=== PATIENT | male | born 1940 | race Caucasian/White ===

== ENCOUNTER 2016-11-21 07:49 | Emergency (ER) | payer MEDICARE, OTHER ==
[~2016-11-21] VITALS: Ht 172.7 cm; Wt 64.0 kg
[~2016-11-21 07:49] MED LIST: ASPI81TA82 PO; ATOR10 PO; ENOX40P SC; HYZA100T6 PO; OXYC-360 PO; TAB-TAB PO; XOPEAER4 INH
[2016-11-21 07:56] VITALS: BP 166/98; PULSE 94; RESP 18; O2SAT 94
[2016-11-21] MEDS ORDERED: ATOR10TA15 PO (08:06)
[2016-11-21] MEDS ORDERED: FLUT1INH INH (08:06)
[2016-11-21] MEDS ORDERED: IPRASOL INH (08:06)
[2016-11-21] MEDS ORDERED: AMLO5TAB2 PO (08:06)
[2016-11-21] MEDS ORDERED: AMOX875T PO (08:06)
[2016-11-21] MEDS ORDERED: CIPR500T2 PO (08:06)
[2016-11-21] MEDS ORDERED: methylPREDNISolone SOD SUCC 125 MG/2 ML VIAL IV PUSH ONE (08:15)
[2016-11-21] MEDS ORDERED: SODIUM CHLORIDE 0.9% FLUSH 10 ML FLUSH IVF PRN (08:15)
[2016-11-21 08:17] VITALS: BP 152/98; PULSE 92; RESP 18; TEMP 98.6; O2SAT 94; O2SAT 96
--- NOTE | 2016-11-21 08:19 | PD ---
HPI Chief Complaint: Respiratory Symptoms Time Seen by Provider: 08:02 Travel History International Travel<30 days: No Contact w/Intl Traveler<30days: No Traveled to known affect area: No History of Present Illness HPI This 76-year-old male is complaining of shortness of breath. His been sick for at least the last 10 days. He's had 2 visits to urgent care center. On his last visit he was put on amoxicillin and prednisone 50 mg daily which has been taking. He has not had any chills or fever. He is not having chest pain. He does have a persistent hacking cough which is nonproductive. He has a history of COPD and bronchitis. He stopped smoking 40 years ago. He has a history of hypertension and is on amlodipine. He has hyperlipidemia. He has no history of heart disease. She had a CT scan of the chest done in 2003 which showed some pleural thickening in the left upper anterior chest. Follow-up was recommended PFS Past Medical History Arthritis: Yes Autoimmune Disease: No Anxiety: No Depression: No Cancer: No Cardiovascular Problems: Yes High Cholesterol: Yes COPD: Yes Diabetes: No Endocrine: No Genitourinary: No Hypertension: Yes Musculoskeletal: Yes Neurologic: No Respiratory: Yes (copd) Thyroid Disease: No Influenza Vaccination: No ?: Not Past Surgical History Body Medical Devices: RIGHT SHOULDER Joint Replacement: Yes (RIGHT SHOULDER, mary KNEE) Pacemaker: No Tonsillectomy: Yes Other Surgery: Yes Social History Alcohol Use: Yes Tobacco Use: No Allergies-Medications (Allergen,Severity, Reaction): Coded Allergies: No Known Allergies (Verified , 11/21/16) Reported Meds & Prescriptions Reported Meds & Active Scripts Active Reported Amoxicillin 875 Mg Tab 875 Mg PO BID Ciprofloxacin (Ciprofloxacin HCl) 500 Mg Tab 500 Mg PO BID Duoneb (Ipratropium-Albuterol Neb) 0.5-2.5 Mg/3 Ml Neb 1 Nebule INH Q4HR NEB Amlodipine (Amlodipine Besylate) 5 Mg Tab 5 Mg PO DAILY Atorvastatin (Atorvastatin Calcium) 10 Mg Tab 10 Mg PO HS Breo Ellipta Inh (Fluticasone/Vilanterol) 100-25 Mcg/Act Inh 1 Puff INH DAILY Use daily at the same time. Review of Systems General / Constitutional: No: Fever, Chills Eyes: No: Diploplia, Blurred Vision HENT: No: Headaches, Vertigo Cardiovascular: No: Chest Pain or Discomfort, Palpitations, Irregular Rhythm Respiratory: Positive: Cough, Shortness of Breath Gastrointestinal: No: Nausea, Vomiting Genitourinary: No: Urgency, Frequency Musculoskeletal: No: Myalgias, Arthralgias Skin: No Rash, No Itching Neurologic: No: Weakness, Dizziness Psychiatric: No: Anxiety Hematologic/Lymphatic: No: Easy Bruising Physical Exam Narrative GENERAL: Well-developed male SKIN: Focused skin assessment warm/dry. HEAD: Atraumatic. Normocephalic. EYES: Pupils equal and round. No scleral icterus. No injection or drainage. ENT: No nasal bleeding or discharge. Mucous membranes pink and moist. NECK: Trachea midline. No JVD. CARDIOVASCULAR: Regular rate and rhythm. No murmur appreciated. RESPIRATORY: No accessory muscle use. There are bilateral rhonchi GASTROINTESTINAL: Abdomen soft, non-tender, nondistended. Hepatic and splenic margins not palpable. MUSCULOSKELETAL: No obvious deformities. No clubbing. No cyanosis. No edema. NEUROLOGICAL: Awake and alert. No obvious cranial nerve deficits. Motor grossly within normal limits. Normal speech. PSYCHIATRIC: Appropriate mood and affect; insight and judgment normal. Data Data Last Documented VS Vital Signs Date Time Temp Pulse Resp B/P (MAP) Pulse Ox O2 Delivery O2 Flow Rate FiO2 11/21/16 09:29 18 94 Nasal Cannula 2.00 11/21/16 09:28 98 168/94 (118) 11/21/16 08:17 98.6 Orders Orders Complete Blood Count With Diff (11/21/16 08:03) Comprehensive Metabolic Panel (11/21/16 08:03) B-Type Natriuretic Peptide (11/21/16 08:03) Urinalysis - C+S If Indicated (11/21/16 08:03) Influenzae A/B Antigen (11/21/16 08:03) Blood Culture (11/21/16 08:03) Iv Access Insert/Monitor (11/21/16 08:03) Ecg Monitoring (11/21/16 08:03) Oximetry (11/21/16 08:03) Oxygen Administration (11/21/16 08:03) Chest, Single Ap (11/21/16 08:03) Sodium Chloride 0.9% Flush (Ns Flush) (11/21/16 08:15) Methylprednisolone So Succ Inj (Solumedr (11/21/16 08:15) Albuterol-Ipratropium Neb (Duoneb Neb) (11/21/16 08:15) Ct Pulmonary Angiogram (11/21/16 08:26) Potassium Chloride (Kcl) (11/21/16 08:45) Iohexol 350 Inj (Omnipaque 350 Inj) (11/21/16 09:20) Labs Laboratory Tests Test 11/21/16 08:10 White Blood Count 9.0 TH/MM3 Red Blood Count 4.32 MIL/MM3 Hemoglobin 13.1 GM/DL Hematocrit 38.4 % Mean Corpuscular Volume 89.0 FL Mean Corpuscular Hemoglobin 30.4 PG Mean Corpuscular Hemoglobin Concent 34.2 % Red Cell Distribution Width 13.3 % Platelet Count 347 TH/MM3 Mean Platelet Volume 7.6 FL Neutrophils (%) (Auto) 70.0 % Lymphocytes (%) (Auto) 16.5 % Monocytes (%) (Auto) 6.4 % Eosinophils (%) (Auto) 6.6 % Basophils (%) (Auto) 0.5 % Neutrophils # (Auto) 6.3 TH/MM3 Lymphocytes # (Auto) 1.5 TH/MM3 Monocytes # (Auto) 0.6 TH/MM3 Eosinophils # (Auto) 0.6 TH/MM3 Basophils # (Auto) 0.0 TH/MM3 CBC Comment DIFF FINAL Differential Comment Blood Urea Nitrogen 10 MG/DL Creatinine 0.66 MG/DL Random Glucose 92 MG/DL Total Protein 7.4 GM/DL Albumin 3.3 GM/DL Calcium Level 8.7 MG/DL Alkaline Phosphatase 76 U/L Aspartate Amino Transf (AST/SGOT) 20 U/L Alanine Aminotransferase (ALT/SGPT) 23 U/L Total Bilirubin 0.6 MG/DL Sodium Level 138 MEQ/L Potassium Level 3.4 MEQ/L Chloride Level 104 MEQ/L Carbon Dioxide Level 25.0 MEQ/L Anion Gap 9 MEQ/L Estimat Glomerular Filtration Rate 118 ML/MIN B-Type Natriuretic Peptide 42 PG/ML [facility] Medical Decision Making Medical Screen Exam Complete: Yes Emergency Medical Condition: Yes Medical Record Reviewed: Yes Differential Diagnosis Differential includes CHF, pneumonia, COPD exacerbation Narrative Course Chest x-ray shows no acute cardiopulmonary findings. There are arthritic changes and postsurgical changes of the shoulder. There is noted to be some mild chronic-appearing interstitial changes of the pulmonary parenchyma. This patient has had increasing shortness of breath which has not responded to antibiotics and steroids. I'm going to order a CT pulmonary angiogram. CT scan has been done. There is no pulmonary embolus. There is some mild aneurysmal dilatation of the aorta. There is an area of consolidation involving the medial aspect of the left lower lobe. This gentleman has been on amoxicillin and Cipro. I'm been a change his antibiotic to Augmentin. He does not have fever, white count or acute bronchospasm at this time. He is stable for discharge I have told him he needs to see a pulmonary doctor. He will call his primary care doctor for referral given him copies of his CT scan and lab work. Diagnosis Primary Impression: Pneumonia Qualified Codes: J18.1 - Lobar pneumonia, unspecified organism Additional Impression: COPD (chronic obstructive pulmonary disease) Qualified Codes: J42 - Unspecified chronic bronchitis Additional Instructions: Follow-up with biomedical equipment specialist, call your doctor for referral Scripts Amoxicillin-Clavulanate (Augmentin) 500-125 mg Tab 500 MG PO Q8H for Infection for 10 Days, TAB 0 Refills Prov: William Pruitt MD 11/21/16 Disposition: 01 DISCHARGE HOME Condition: Stable William Pruitt MD Nov 21, 2016 08:19
[2016-11-21 08:21] LABS: AUTOMATED NEUTROPHIL # 6.3 TH/MM3 (1.8-7.7); BASOPHIL % 0.5 % (0.0-2.0); EOSINOPHIL # 0.6 TH/MM3 (0-0.4); EOSINOPHIL % 6.6 % (0.0-4.0); HEMATOCRIT 38.4 % (39.0-51.0); HEMO FLAGS DIFF FINAL; LYMPH % 16.5 % (9.0-44.0); LYMPHOCYTE # 1.5 TH/MM3 (1.0-4.8); MEAN CORPUSCULAR HEMOGLOBIN 30.4 PG (27.0-34.0); MEAN CORPUSCULAR HGB CONC 34.2 % (32.0-36.0); MONO % 6.4 % (0.0-8.0); PLATELET COUNT 347 TH/MM3 (150-450); RED BLOOD COUNT 4.32 MIL/MM3 (4.50-5.90); RED CELL DISTRIBUTION WIDTH 13.3 % (11.6-17.2)
--- NOTE | 2016-11-21 08:22 | RADRPT ---
EXAM DATE/TIME: 11/21/2016 08:15 [facility] COMPARISON: No previous studies available for comparison. INDICATIONS : Short of breath. MEDICAL HISTORY : Chronic obstructive pulmonary disease. SURGICAL HISTORY : None. ENCOUNTER: Initial ACUITY: 1 week PAIN SCORE: 0/10 LOCATION: Bilateral chest FINDINGS: The heart is normal in size. There mild chronic appearing interstitial changes within the pulmonary p arenchyma. The lungs are otherwise clear. The visualized bony structures demonstrate advanced degenerative changes within the left shoulder. Th ere has been prior arthroplasty of the right shoulder. CONCLUSION: 1. No acute cardiopulmonary findings. 2. Arthritic changes and postsurgical changes of the shoulders as above. Meek Suggs MD on November 21, 2016 at 8:20 Board Certified Radiologist. This report was verified electronically.
[2016-11-21 08:30] VITALS: O2SAT 93
[2016-11-21] MEDS: RESP: ALBUTEROL 2.5 MG/IPRATROPIUM 0.5 MG NEB (SCH) INH (08:30)
[2016-11-21 08:39] LABS: CHLORIDE 104 MEQ/L (98-107); POTASSIUM 3.4 MEQ/L (3.5-5.1); SODIUM (NA) 138 MEQ/L (136-145)
[2016-11-21 08:43] LABS: ANION GAP 9 MEQ/L (5-15); BLOOD UREA NITROGEN 10 MG/DL (7-18)
[2016-11-21] MEDS ORDERED: POTASSIUM CHLORIDE 20 MEQ CONTROLLED RELEASE TAB PO ONE (08:45)
[2016-11-21 08:46] LABS: ALT (GPT) 23 U/L (12-78); AST (GOT) 20 U/L (15-37); GLOMERULAR FILTRATION RATE 118 ML/MIN (>89)
[2016-11-21 08:48] LABS: TOTAL BILIRUBIN ADULT 0.6 MG/DL (0.2-1.0)
[2016-11-21 08:49] LABS: ALKALINE PHOSPHATASE 76 U/L (45-117)
[2016-11-21] MEDS ORDERED: IOHEXOL 350 MG/ML 10 ML VIAL (for RAD DIAG) IVCONTRAST ONE (09:20)
[2016-11-21 09:28] VITALS: BP 168/94; PULSE 98; RESP 18; O2SAT 94
--- NOTE | 2016-11-21 09:31 | RADRPT ---
EXAM DATE/TIME: 11/21/2016 09:02 [facility] COMPARISON: No previous studies available for comparison. INDICATIONS : Short of breath. Evaluate for embolism. IV CONTRAST: 75 cc Omnipaque 350 (iohexol) IV RADIATION DOSE: 13.31 CTDIvol (mGy) MEDICAL HISTORY : Hypertension. Chronic obstructive pulmonary disease. SURGICAL HISTORY : Tonsillectomy. ENCOUNTER: Initial ACUITY: 2 weeks PAIN SCALE: 0/10 LOCATION: chest TECHNIQUE: Volumetric scanning of the chest was performed using a pulmonary embolism protocol MIP images were re constructed. Using automated exposure control and adjustment of the mA and/or kV according to patien t size, radiation dose was kept as low as reasonably achievable to obtain optimal diagnostic quality images. DICOM format image data is available electronically for review and comparison. Follow-up recommendations for detected pulmonary nodules are based at a minimum on nodule size and pa tient risk factors according to Fleischner Society Guidelines. FINDINGS: The examination is of good diagnostic quality. No pulmonary embolus is identified. The tubular portion of the ascending aorta is mildly aneurysmal at 3.9 cm. The arch is mildly aneurys mal as well measuring approximately 3.2 cm. The descending thoracic aorta is normal in caliber. The h eart is at the upper limits of normal in size. There is mild atherosclerotic plaquing and coronary ar teries. No significant hilar or mediastinal adenopathy is seen. There are COPD changes within the pulmonary parenchyma. There is an area of consolidation in the post erior medial aspect of the left lower lobe. Bone windowed images demonstrate a pectus deformity. The osseous structures are otherwise intact. The visualized portion of upper abdomen demonstrate a 1 cm simple cyst within the right kidney. CONCLUSION: 1. No pulmonary embolus identified. 2. Moderate sized area of consolidation involving the medial aspect of the left lower lobe. 3. 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 Size measurements are given above. 4. Pectus deformity. Meek Suggs MD on November 21, 2016 at 9:26 Board Certified Radiologist. This report was verified electronically.
[2016-11-21] MEDS ORDERED: AUGM500T7 PO (09:50)
--- NOTE | 2016-11-21 14:16 | EKG ---
Date Performed: 11/21/2016 Time Performed: 07:54:37 PTAGE: 76 years EKG: Sinus rhythm WITH PACs LEFT ANTERIOR FASCICULAR BLOCK ABNORMAL ECG NO PREVIOUS TRACING DOCTOR: Pete Haywood Interpretating Date/Time 11/21/2016 14:15:59
== END 2016-11-21 10:06 | disposition home or self-care (01) ==
LOC: PHED 07:49
DX: J18.1 Lobar pneumonia, unspecified organism (principal); J44.0 Chronic obstructive pulmonary disease with (acute) lower respiratory infection; R94.31 Abnormal electrocardiogram [ECG] [EKG]; I10 Essential (primary) hypertension
CPT/HCPCS: 71010; 71275; 80053; 83880; 85025; 87040; 87804; 93005; 94640; 94664; 96374; 99285; J2930; Q9967

== ENCOUNTER 2017-05-12 15:57 | Inpatient (IN) | payer MEDICARE ==
[~2017-05-12] VITALS: Ht 172.7 cm; Wt 66.3 kg
[2017-05-12] VITALS (7 sets, daily range): BP systolic 125–169; BP diastolic 72–95; PULSE 107–112; RESP 18–20; TEMP 98.5–99; O2SAT 85–93
[~2017-05-12 15:57] MED LIST changes: +AMLO5TAB2 PO; +AMOX875T PO; -ASPI81TA82 PO; -ATOR10 PO; +ATOR10TA15 PO; +AUGM500T7 PO; +CIPR500T2 PO; -ENOX40P SC; +FLUT1INH INH; -HYZA100T6 PO; +IPRASOL INH; -OXYC-360 PO; -TAB-TAB PO; -XOPEAER4 INH
[2017-05-12] MEDS: RESP: ALBUTEROL 2.5 MG/IPRATROPIUM 0.5 MG NEB (SCH) INH ×2 (16:28→19:53)
[2017-05-12] MEDS ORDERED: methylPREDNISolone SOD SUCC 125 MG/2 ML VIAL IV PUSH ONE (16:30)
--- NOTE | 2017-05-12 16:30 | PD ---
HPI Chief Complaint: Respiratory Symptoms Time Seen by Provider: 16:13 Travel History International Travel<30 days: No Contact w/Intl Traveler<30days: No Traveled to known affect area: No History of Present Illness HPI 77yo M with PMH of COPD presents to the ED with c/o sob for a few days. Said he felt warm but no documented fever. +Productive cough. Does not use oxygen at home, only has nebulizer machine. +Generalized weakness. Denies any chest pain , n/v, abdominal pain, focal weakness or numbness, history of PE/DVT, hemoptysis. 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 [facility] Past Medical History Arthritis: Yes Autoimmune Disease: No Anxiety: No Depression: No Cancer: No Cardiovascular Problems: Yes High Cholesterol: Yes COPD: Yes Diabetes: No Diminished Hearing: No Endocrine: No Genitourinary: No Hypertension: Yes Implanted Vascular Access Dvce: Yes Musculoskeletal: Yes Neurologic: No Respiratory: Yes (copd) Thyroid Disease: No Tetanus Vaccination: Unknown Influenza Vaccination: No Past Surgical History Body Medical Devices: RIGHT SHOULDER Joint Replacement: Yes (RIGHT SHOULDER, mary KNEE) Pacemaker: No Tonsillectomy: Yes Other Surgery: Yes Social History Alcohol Use: Yes Tobacco Use: No Substance Use: No Allergies-Medications (Allergen,Severity, Reaction): Coded Allergies: No Known Allergies (Verified Adverse Reaction, Unknown, 05/12/17) Reported Meds & Prescriptions Reported Meds & Active Scripts Active Reported Duoneb (Ipratropium-Albuterol Neb) 0.5-2.5 Mg/3 Ml Neb 1 Nebule INH Q4HR NEB Amlodipine (Amlodipine Besylate) 5 Mg Tab 5 Mg PO DAILY Atorvastatin (Atorvastatin Calcium) 10 Mg Tab 10 Mg PO HS Breo Ellipta Inh (Fluticasone/Vilanterol) 100-25 Mcg/Act Inh 1 Puff INH DAILY Use daily at the same time. Review of Systems Except as stated in HPI: all other systems reviewed are Neg Physical Exam Narrative GENERAL: 77yo M in mild distress. SKIN: Focused skin assessment warm/dry. HEAD: Atraumatic. Normocephalic. EYES: Pupils equal and round. No scleral icterus. No injection or drainage. ENT: No nasal bleeding or discharge. Mucous membranes pink and moist. NECK: Trachea midline. No JVD. CARDIOVASCULAR: Tachycardic in the low 100s. No murmur appreciated. RESPIRATORY: + accessory muscle use. Clear to auscultation. Breath sounds equal bilaterally. GASTROINTESTINAL: Abdomen soft, non-tender, nondistended. MUSCULOSKELETAL: No obvious deformities. No clubbing. No cyanosis. No edema. No calf tenderness. NEUROLOGICAL: Awake and alert. No obvious cranial nerve deficits. Motor grossly within normal limits. Normal speech. PSYCHIATRIC: Appropriate mood and affect; insight and judgment normal. Data Data Last Documented VS Vital Signs Date Time Temp Pulse Resp B/P (MAP) Pulse Ox O2 Delivery O2 Flow Rate FiO2 05/12/17 16:35 92 Nasal Cannula 4.00 05/12/17 16:04 98.5 112 20 169/95 (119) Orders Orders Complete Blood Count With Diff (05/12/17 16:20) Basic Metabolic Panel (Bmp) (05/12/17 16:20) B-Type Natriuretic Peptide (05/12/17 16:20) Act Partial Throm Time (Ptt) (05/12/17 16:20) Prothrombin Time / Inr (Pt) (05/12/17 16:20) Magnesium (Mg) (05/12/17 16:20) Troponin I (05/12/17 16:20) Arterial Blood Gas (Abg) (05/12/17 16:20) Influenzae A/B Antigen (05/12/17 16:20) Blood Culture (05/12/17 16:20) Electrocardiogram (05/12/17 16:20) Chest, Single Ap (05/12/17 16:20) Methylprednisolone So Succ Inj (Solumedr (05/12/17 16:30) Albuterol-Ipratropium Neb (Duoneb Neb) (05/12/17 16:30) Lactic Acid Sepsis Protocol (05/12/17 16:20) Sodium Chlor 0.9% 1000 Ml Inj (Ns 1000 M (05/12/17 17:45) Ceftriaxone Inj (Rocephin Inj) (05/12/17 17:45) Azithromycin Inj (Zithromax Inj) (05/12/17 17:45) Oseltamivir (Tamiflu) (05/12/17 17:45) Labs Laboratory Tests Test 05/12/17 16:30 05/12/17 16:35 Lactic Acid Level 2.8 mmol/L White Blood Count 14.6 TH/MM3 Red Blood Count 4.69 MIL/MM3 Hemoglobin 14.6 GM/DL Hematocrit 42.4 % Mean Corpuscular Volume 90.5 FL Mean Corpuscular Hemoglobin 31.2 PG Mean Corpuscular Hemoglobin Concent 34.5 % Red Cell Distribution Width 13.2 % Platelet Count 259 TH/MM3 Mean Platelet Volume 8.1 FL Neutrophils (%) (Auto) 84.9 % Lymphocytes (%) (Auto) 6.7 % Monocytes (%) (Auto) 7.1 % Eosinophils (%) (Auto) 0.0 % Basophils (%) (Auto) 1.3 % Neutrophils # (Auto) 12.4 TH/MM3 Lymphocytes # (Auto) 1.0 TH/MM3 Monocytes # (Auto) 1.0 TH/MM3 Eosinophils # (Auto) 0.0 TH/MM3 Basophils # (Auto) 0.2 TH/MM3 CBC Comment AUTO DIFF Differential Comment AUTO DIFF CONFIRMED Platelet Estimate NORMAL Platelet Morphology Comment NORMAL Prothrombin Time 10.2 SEC Prothromb Time International Ratio 1.0 RATIO Activated Partial Thromboplast Time 30.8 SEC Blood Gas Puncture Site RT RADIAL Blood Gas Patient Temperature 98.6 Blood Gas HCO3 27 mmol/L Blood Gas Base Excess 3.6 mmol/L Blood Gas Oxygen Saturation 90 % Arterial Blood pH 7.53 Arterial Blood Partial Pressure CO2 32 mmHG Arterial Blood Partial Pressure O2 63 mmHG Arterial Blood Oxygen Content 17.5 Vol % Arterial Blood Carboxyhemoglobin 1.4 % Arterial Blood Methemoglobin 1.3 % Blood Gas Hemoglobin 13.8 G/DL Oxygen Delivery Device NASAL CANNULA Blood Gas Liter Flow 4 L/M Blood Urea Nitrogen 13 MG/DL Creatinine 0.91 MG/DL Random Glucose 117 MG/DL Calcium Level 8.8 MG/DL Magnesium Level 2.0 MG/DL Sodium Level 136 MEQ/L Potassium Level 3.7 MEQ/L Chloride Level 98 MEQ/L Carbon Dioxide Level 28.5 MEQ/L Anion Gap 10 MEQ/L Estimat Glomerular Filtration Rate 81 ML/MIN Troponin I LESS THAN 0.02 NG/ML B-Type Natriuretic Peptide 49 PG/ML MDM Medical Decision Making Medical Screen Exam Complete: Yes Emergency Medical Condition: Yes Interpretation(s) EKG: Sinus tachycardia at 107bpm. LAD. No ST segment elevation or depression. Differential Diagnosis Pneumonia vs. COPD exacerbation vs. PE vs. ACS Narrative Course 77yo M with sob for a few days. Pt is hypoxic and only saturating low 90-92 on 4L NC. Pt is not wheezing on exam but given his COPD history, will give duonebs and methylprednisolone. Labs reviewed, leukocytosis at 14.6. Lactic acid elevated at 2.8. Troponin negative. BNP normal. ABG showed respiratory alkalosis with pH of 7.53, pCO2 32. HCO3 27. O2 sat was 90% on 4L NC. Positive influenza A antigen. Pt given tamiflu. CXR showed bibasilar consolidative changes without congestive failure. Discussed with Dr. Dsouza and accepted to his service. Critical Care Narrative Aggregate critical care time was 45 minutes. Time to perform other separately billable procedures was not included in the critical care time. My time did not include minutes spent treating any other patients simultaneously or on activities that did not directly contribute to the patient's treatment. The services I provided to this patient were to treat and/or prevent clinically significant deterioration that could result in: respiratory failure or . I provided critical care services requiring my management, as noted below: Chart data review, documentation time, medication orders and management, vital sign assessments/reviewing monitor data, ordering and reviewing lab tests, ordering and interpreting/reviewing x-rays and diagnostic studies, care of the patient and discussion of the patient with the admitting physicians. Sepsis Criteria SIRS Criteria (2 or more): Heart rate over 90, RR > 20 or PaCO2 < 32, WBC > 16066, < 4000 or > 10% bands Sepsis Criteria (SIRS+source): Infect source susp/known Severe Sepsis (+one): Lactate >2 Diagnosis Primary Impression: Sepsis due to pneumonia Additional Impression: Influenza A Admitting Information Admitting Physician Requests: it Liane Langford DO May 12, 2017 16:30
--- NOTE | 2017-05-12 16:55 | RADRPT ---
EXAM DATE/TIME: 05/12/2017 16:33 [facility] COMPARISON: CHEST SINGLE AP, November 21, 2016, 8:15. INDICATIONS : Shortness of breath. MEDICAL HISTORY : Hypertension. Chronic obstructive pulmonary disease. SURGICAL HISTORY : Tonsillectomy. ENCOUNTER: Initial ACUITY: 1 day PAIN SCORE: 0/10 LOCATION: Bilateral chest FINDINGS: Compensated cardiomegaly. New bibasilar consolidative changes worse on the left. No pleural effusio n. Total shoulder right. Degenerative changes about the left shoulder. CONCLUSION: New bibasilar consolidative changes without congestive failure Stephan Suggs MD FACR on May 12, 2017 at 16:53 Board Certified Radiologist. This report was verified electronically.
[2017-05-12 17:00] LABS: AUTOMATED NEUTROPHIL # 12.4 TH/MM3 (1.8-7.7); BASOPHIL # 0.2 TH/MM3 (0-0.2); BASOPHIL % 1.3 % (0.0-2.0); HEMATOCRIT 42.4 % (39.0-51.0); HEMOGLOBIN 14.6 GM/DL (13.0-17.0); LYMPH % 6.7 % (9.0-44.0); MEAN CELL VOLUME 90.5 FL (80.0-100.0); MEAN CORPUSCULAR HEMOGLOBIN 31.2 PG (27.0-34.0); MEAN CORPUSCULAR HGB CONC 34.5 % (32.0-36.0); MEAN PLATELET VOLUME 8.1 FL (7.0-11.0); MONO % 7.1 % (0.0-8.0); NEUT % 84.9 % (16.0-70.0); PLATELET COUNT 259 TH/MM3 (150-450); RED BLOOD COUNT 4.69 MIL/MM3 (4.50-5.90); RED CELL DISTRIBUTION WIDTH 13.2 % (11.6-17.2); WHITE BLOOD COUNT 14.6 TH/MM3 (4.0-11.0)
[2017-05-12 17:03] LABS: PROTHROMBIN TIME - PATIENT 10.2 SEC (9.8-11.6)
[2017-05-12 17:20] LABS: CHLORIDE 98 MEQ/L (98-107); SODIUM (NA) 136 MEQ/L (136-145)
[2017-05-12 17:23] LABS: BICARBONATE 28.5 MEQ/L (21.0-32.0); CALCIUM 8.8 MG/DL (8.5-10.1); GLUCOSE,RANDOM 117 MG/DL (74-106)
[2017-05-12 17:24] LABS: BLOOD UREA NITROGEN 13 MG/DL (7-18)
[2017-05-12 17:27] LABS: CREATININE 0.91 MG/DL (0.60-1.30); GLOMERULAR FILTRATION RATE 81 ML/MIN (>89)
[2017-05-12 17:30] LABS: LACTIC ACID SEPSIS PROTOCOL 2.8 mmol/L (0.4-2.0)
[2017-05-12 17:32] LABS: TROPONIN I LESS THAN 0.02 NG/ML (0.02-0.05)
[2017-05-12] MEDS ORDERED: OSELTAMIVIR PHOSPHATE 75 MG CAP PO ONE (17:45)
[2017-05-12] MEDS ORDERED: AZITHROMYCIN INJ 500 MG in SODIUM CHLOR 0.9% 250 ML INJ 250 ML IV ONE (17:45)
[2017-05-12] MEDS ORDERED: cefTRIAXone INJ 1,000 MG in SODIUM CHLORIDE 0.9% INJ 100 ML IV ONE (17:45)
[2017-05-12] MEDS ORDERED: SODIUM CHLOR 0.9% 1000 ML INJ 1,000 ML IV ONE (17:45)
[2017-05-12] MEDS ORDERED: MAGNESIUM HYDROXIDE SUSP 30 ML CUP PO PRN (18:15)
[2017-05-12] MEDS ORDERED: ONDANSETRON HCL 4 MG/2 ML VIAL IVP PRN (18:15)
[2017-05-12] MEDS ORDERED: ACETAMINOPHEN/HYDROcodone 325 MG/10 MG TAB PO PRN (18:15)
[2017-05-12] MEDS ORDERED: ACETAMINOPHEN/HYDROcodone 325 MG/5 MG TAB PO PRN (18:15)
[2017-05-12] MEDS ORDERED: NALOXONE HCL 0.4 MG/ML AMP IV PUSH PRN (18:15)
[2017-05-12] MEDS ORDERED: SODIUM CHLORIDE 0.9% FLUSH 10 ML FLUSH IV FLUSH PRN (18:15)
[2017-05-12] MEDS ORDERED: RESP: ALBUTEROL 2.5 MG/3 ML NEB (PRN) INH (18:15)
[2017-05-12] MEDS ORDERED: ENOXAPARIN SODIUM 40 MG/0.4 ML SYRINGE SQ SCH (20:30)
--- NOTE | 2017-05-12 20:30 | HHI.HP ---
HPI Service [facility] Primary Care Physician Rogelio Mora M.D. Admission Diagnosis Sepsis secondary to bilateral pneumonia, influenza positive Diagnoses: Travel History International Travel<30 Days: No Contact w/Intl Traveler <30 Da: No Traveled to Known Affected Are: No Sepsis Criteria SIRS Criteria (2 or more): Heart rate over 90, WBC > 39011, < 4000 or > 10% bands Sepsis Criteria (SIRS+source): Infect source susp/known Severe Sepsis (+one): Lactate >2 History of Present Illness Mr. Arriaza is a 77-year-old male. He says for the past 3 days he felt severely ill and had difficulty breathing. He came into the ER secondary to this. He has found to be influenza positive. Bilateral pneumonia is also seen on imaging. Leukocytosis is present with tachycardia and an elevated lactic acid level qualifying him for severe sepsis. He has also had hypoxia but this is improved with use of oxygen via nasal cannula. He has had walking pneumonia in the past and also has had an influenza before. No influenza vaccination was obtained this year. No other complaints at this time. Review of Systems Constitutional: COMPLAINS OF: Fatigue, Fever, Chills, Night Sweats Eyes: DENIES: Blurred vision, Diplopia, Eye inflammation, Eye pain Ears, nose, mouth, throat: DENIES: Tinnitus, Hearing loss, Vertigo, Nasal discharge Respiratory: COMPLAINS OF: Cough, Sputum production, Shortness of breath, DENIES: Wheezing Cardiovascular: DENIES: Chest pain, Palpitations, Syncope, Dyspnea on Exertion Gastrointestinal: DENIES: Abdominal pain, Black stools, Bloody stools, Constipation Musculoskeletal: COMPLAINS OF: Joint pain, Muscle aches, Stiffness, DENIES: Neck pain Integumentary: DENIES: Abnormal pigmentation, Nail changes, Pruritus, Rash Hematologic/lymphatic: DENIES: Bruising, Lymphadenopathy Immunologic/allergic: DENIES: Eczema, Urticaria Neurologic: DENIES: Abnormal gait, Headache, Paresthesias Psychiatric: DENIES: Anxiety, Confusion, Hallucinations Past Family Social History Past Medical History Osteoarthritis Hypertension Hyperlipidemia Past Surgical History Tonsillectomy Right shoulder surgery Bilateral knee surgery Reported Medications Reported Meds & Active Scripts Active Reported Duoneb (Ipratropium-Albuterol Neb) 0.5-2.5 Mg/3 Ml Neb 1 Nebule INH Q4HR NEB Amlodipine (Amlodipine Besylate) 5 Mg Tab 5 Mg PO DAILY Atorvastatin (Atorvastatin Calcium) 10 Mg Tab 10 Mg PO HS Breo Ellipta Inh (Fluticasone/Vilanterol) 100-25 Mcg/Act Inh 1 Puff INH DAILY Use daily at the same time. Allergies: Coded Allergies: No Known Allergies (Verified Allergy, Unknown, 05/12/17) Active Ordered Medications Administered Medications Medications (Trade) Dose Ordered Sig/Abhijit Route PRN Reason Start Time Stop Time Status Last Admin Dose Admin Albuterol/ Ipratropium (Duoneb Neb) 1 ampule Q6HR WHILE AWAKE NEB INH 05/12/17 20:00 05/12/17 19:53 Family History Myocardial infarction in father Prostate cancer in brother Cancer in mother Social History Occasional alcohol use No active smoking No illicit drug abuse Physical Exam Vital Signs Vital Signs Date Time Temp Pulse Resp B/P (MAP) Pulse Ox O2 Delivery O2 Flow Rate FiO2 05/12/17 19:46 103 20 133/74 (93) 94 Nasal Cannula 4.00 05/12/17 19:03 107 18 93 Nasal Cannula 4.00 05/12/17 19:03 107 18 125/72 (89) 93 Nasal Cannula 4.00 05/12/17 16:35 92 Nasal Cannula 4.00 05/12/17 16:14 92 Nasal Cannula 4.00 05/12/17 16:04 98.5 112 20 169/95 (119) 85 Physical Exam GENERAL: NAD, A&Ox3 HEAD: Normocephalic. NECK: Supple, trachea midline. No lymphadenopathy. EYES: No scleral icterus. No injection or drainage. CARDIOVASCULAR: Tachycardic rate and regular rhythm without murmurs, gallops, or rubs. RESPIRATORY: Breath sounds equal bilaterally. No accessory muscle use. Crackles at bases. GASTROINTESTINAL: Abdomen soft, non-tender, nondistended. MUSCULOSKELETAL: No cyanosis, or edema. SKIN: Warm and dry. NEURO: No focal neurological deficitis. Laboratory Laboratory Tests Test 05/12/17 16:30 05/12/17 16:35 Lactic Acid Level 2.8 White Blood Count 14.6 Red Blood Count 4.69 Hemoglobin 14.6 Hematocrit 42.4 Mean Corpuscular Volume 90.5 Mean Corpuscular Hemoglobin 31.2 Mean Corpuscular Hemoglobin Concent 34.5 Red Cell Distribution Width 13.2 Platelet Count 259 Mean Platelet Volume 8.1 Neutrophils (%) (Auto) 84.9 Lymphocytes (%) (Auto) 6.7 Monocytes (%) (Auto) 7.1 Eosinophils (%) (Auto) 0.0 Basophils (%) (Auto) 1.3 Neutrophils # (Auto) 12.4 Lymphocytes # (Auto) 1.0 Monocytes # (Auto) 1.0 Eosinophils # (Auto) 0.0 Basophils # (Auto) 0.2 CBC Comment AUTO DIFF Differential Comment AUTO DIFF CONFIRMED Platelet Estimate NORMAL Platelet Morphology Comment NORMAL Prothrombin Time 10.2 Prothromb Time International Ratio 1.0 Activated Partial Thromboplast Time 30.8 Blood Gas Puncture Site RT RADIAL Blood Gas Patient Temperature 98.6 Blood Gas HCO3 27 Blood Gas Base Excess 3.6 Blood Gas Oxygen Saturation 90 Arterial Blood pH 7.53 Arterial Blood Partial Pressure CO2 32 Arterial Blood Partial Pressure O2 63 Arterial Blood Oxygen Content 17.5 Arterial Blood Carboxyhemoglobin 1.4 Arterial Blood Methemoglobin 1.3 Blood Gas Hemoglobin 13.8 Oxygen Delivery Device NASAL CANNULA Blood Gas Liter Flow 4 Blood Urea Nitrogen 13 Creatinine 0.91 Random Glucose 117 Calcium Level 8.8 Magnesium Level 2.0 Sodium Level 136 Potassium Level 3.7 Chloride Level 98 Carbon Dioxide Level 28.5 Anion Gap 10 Estimat Glomerular Filtration Rate 81 Troponin I LESS THAN 0.02 B-Type Natriuretic Peptide 49 Date/Time Source Procedure Growth Status 05/12/17 16:35 Blood Peripheral Aerobic Blood Culture Pending Received 05/12/17 16:35 Blood Peripheral Anaerobic Blood Culture Pending Received 05/12/17 16:40 Nasal Aspirate Influenza Types A,B Antigen (KOREY) - Final Positive For Flu A Antigen Complete Result Diagram: 05/12/17 1635 05/12/17 1635 Imaging Last Impressions Chest X-Ray 05/12/17 1620 Signed Impressions: Service Date/Time: Friday, May 12, 2017 16:33 - CONCLUSION: New bibasilar consolidative changes without congestive failure Stephan Suggs MD FACR Septic Shock Reassessment Septic shock perfusion: reassessment completed Caprini VTE Risk Assessment Caprini VTE Risk Assessment: Mod/High Risk (score >= 2) Caprini Risk Assessment Model Point Value = 1 Point Value = 2 Point Value = 3 Point Value = 5 Age 41-60 Minor surgery BMI > 25 kg/m2 Swollen legs Varicose veins or History of unexplained or recurrent spontaneous Oral contraceptives or hormone replacement Sepsis (< 1 month) Serious lung disease, including pneumonia (< 1 month) Abnormal pulmonary function Acute myocardial infarction Congestive heart failure (< 1 month) History of inflammatory bowel disease Medical patient at bed rest Age 61-74 Arthroscopic surgery Major open surgery (> 45 min) Laparoscopic surgery (> 45 min) Malignancy Confined to bed (> 72 hours) Immobilizing plaster cast Central venous access Age >= 75 History of VTE Family history of VTE Factor V Leiden Prothrombin [id number] Lupus anticoagulant Anticardiolipin antibodies Elevated serum homocysteine Heparin-induced thrombocytopenia Other congenital or acquired thrombophilia Stroke (< 1 month) Elective arthroplasty Hip, pelvis, or leg fracture Acute spinal cord injury (< 1 month) Prophylaxis Regimen Total Risk Factor Score Risk Level Prophylaxis Regimen 0-1 Low Early ambulation 2 Moderate Order ONE of the following: *Sequential Compression Device (SCD) *Heparin 5000 units SQ BID 3-4 Higher Order ONE of the following medications: *Heparin 5000 units SQ TID *Enoxaparin/Lovenox 40 mg SQ daily (WT < 150 kg, CrCl > 30 mL/min) *Enoxaparin/Lovenox 30 mg SQ daily (WT < 150 kg, CrCl > 10-29 mL/min) *Enoxaparin/Lovenox 30 mg SQ BID (WT < 150 kg, CrCl > 30 mL/min) AND/OR *Sequential Compression Device (SCD) 5 or more Highest Order ONE of the following medications: *Heparin 5000 units SQ TID (Preferred with Epidurals) *Enoxaparin/Lovenox 40 mg SQ daily (WT < 150 kg, CrCl > 30 mL/min) *Enoxaparin/Lovenox 30 mg SQ daily (WT < 150 kg, CrCl > 10-29 mL/min) *Enoxaparin/Lovenox 30 mg SQ BID (WT < 150 kg, CrCl > 30 mL/min) AND *Sequential Compression Device (SCD) Assessment and Plan Problem List: (1) Influenza A ICD Code: J10.1 - Influenza due to other identified influenza virus with other respiratory manifestations Status: Acute (2) Sepsis due to pneumonia ICD Code: J18.9 - Pneumonia, unspecified organism; A41.9 - Sepsis, unspecified organism Status: Acute Assessment and Plan 77-year-old male admitted secondary to influenza with pneumonia, hypoxia, and severe sepsis Bilateral pneumonia Hypoxia Nebulized treatments as needed Oxygen supplementation Follow pulse ox Treat infection Wean oxygen as tolerated Monitor for clinical improvement Rocephin Azithromycin Probiotic Severe sepsis IV hydration Treatment infection as above Follow lactic acid level Influenza A Tamiflu for 5 days Hypertension Continue baseline treatment Follow blood pressures Adjust treatments as needed Hyperlipidemia Continue present treatment Follow as an outpatient DVT prophylaxis Lovenox Physician Certification 2 Midnight Certification Type: Admission for Inpatient Services Order for Inpatient Services The services are ordered in accordance with Medicare regulations or non- Medicare payer requirements, as applicable. In the case of services not specified as inpatient-only, they are appropriately provided as inpatient services in accordance with the 2-midnight benchmark. Estimated LOS (days): 3 days is the estimated time the patient will need to remain in the hospital, assuming treatment plan goals are met and no additional complications. Post-Hospital Plan: Home Meek Dsouza MD May 12, 2017 20:30
[2017-05-12] MEDS: OSELTAMIVIR PHOSPHATE 45 MG CAP PO SCH (21:18)
[2017-05-12] MEDS: SODIUM CHLORIDE 0.9% FLUSH 10 ML FLUSH IV FLUSH SCH (21:20)
[2017-05-12] MEDS: ENOXAPARIN SODIUM 40 MG/0.4 ML SYRINGE SQ SCH (21:20)
[2017-05-12] MEDS: SODIUM CHLOR 0.9% 1000 ML INJ 1,000 ML IV SCH (21:26)
[2017-05-12] MEDS: diphenhydrAMINE HCL 50 MG CAP PO PRN (22:56)
[2017-05-13] VITALS (8 sets, daily range): BP systolic 111–142; BP diastolic 61–76; PULSE 75–102; RESP 14–18; TEMP 98–99.7; O2SAT 90–95
[2017-05-13] MEDS: SODIUM CHLOR 0.9% 1000 ML INJ 1,000 ML IV SCH (05:44)
[2017-05-13] MEDS: RESP: ALBUTEROL 2.5 MG/IPRATROPIUM 0.5 MG NEB (SCH) INH ×3 (07:48→19:36)
[2017-05-13 08:22] LABS: AUTOMATED NEUTROPHIL # 12.2 TH/MM3 (1.8-7.7); BASOPHIL % 0.1 % (0.0-2.0); EOSINOPHIL % 0.1 % (0.0-4.0); HEMATOCRIT 36.7 % (39.0-51.0); HEMOGLOBIN 12.4 GM/DL (13.0-17.0); LYMPHOCYTE # 0.7 TH/MM3 (1.0-4.8); MEAN CELL VOLUME 90.3 FL (80.0-100.0); MEAN CORPUSCULAR HEMOGLOBIN 30.4 PG (27.0-34.0); MEAN CORPUSCULAR HGB CONC 33.7 % (32.0-36.0); MONOCYTE # 0.3 TH/MM3 (0-0.9); NEUT % 92.8 % (16.0-70.0); PLATELET COUNT 244 TH/MM3 (150-450); RED BLOOD COUNT 4.07 MIL/MM3 (4.50-5.90); RED CELL DISTRIBUTION WIDTH 12.8 % (11.6-17.2); WHITE BLOOD COUNT 13.2 TH/MM3 (4.0-11.0)
[2017-05-13] MEDS: predniSONE 20 MG TAB PO SCH ×2 (08:22→21:06)
[2017-05-13] MEDS: LACTOBACILLUS ACIDOPHILUS TAB PO SCH ×3 (08:22→16:39)
[2017-05-13 08:23] LABS: CHLORIDE 105 MEQ/L (98-107); SODIUM (NA) 139 MEQ/L (136-145)
[2017-05-13] MEDS: SODIUM CHLORIDE 0.9% FLUSH 10 ML FLUSH IV FLUSH SCH ×2 (08:23→21:06)
[2017-05-13 08:26] LABS: CALCIUM 8.4 MG/DL (8.5-10.1)
[2017-05-13 08:27] LABS: ALBUMIN 2.9 GM/DL (3.4-5.0)
[2017-05-13] MEDS ORDERED: POTASSIUM CHLORIDE 10 MEQ CONTROLLED RELEASE TAB PO ONE (08:30)
[2017-05-13 08:48] LABS: ALKALINE PHOSPHATASE 66 U/L (45-117); ALT (GPT) 14 U/L (12-78); AST (GOT) 16 U/L (15-37); BLOOD UREA NITROGEN 9 MG/DL (7-18); GLOMERULAR FILTRATION RATE 131 ML/MIN (>89); GLUCOSE,RANDOM 233 MG/DL (74-106); TOTAL BILIRUBIN ADULT 0.2 MG/DL (0.2-1.0); TOTAL PROTEIN 6.9 GM/DL (6.4-8.2)
[2017-05-13] MEDS: OSELTAMIVIR PHOSPHATE 45 MG CAP PO SCH ×2 (09:46→21:06)
[2017-05-13] MEDS: guaiFENesin SOLUTION 200 MG/10 ML CUP PO PRN ×2 (12:44→21:06)
--- NOTE | 2017-05-13 14:45 | HHI.PR ---
Subjective Remarks Patient remains oxygen dependent today. He is no longer in sepsis. Some signs of improvement he may be stable for discharge in 1-2 days if he continues to improve. Objective Vital Signs Date Time Temp Pulse Resp B/P (MAP) Pulse Ox O2 Delivery O2 Flow Rate FiO2 05/13/17 12:00 99.7 81 14 142/71 (94) 90 05/13/17 08:00 98.9 102 16 131/69 (89) 90 05/13/17 07:45 90 Nasal Cannula 4.00 05/13/17 04:42 05/13/17 00:01 98.3 92 16 111/61 (78) 94 05/12/17 20:38 99.0 110 18 141/77 (98) 90 05/12/17 20:17 107 05/12/17 19:53 91 Nasal Cannula 4.00 05/12/17 19:46 103 20 133/74 (93) 94 Nasal Cannula 4.00 05/12/17 19:03 107 18 93 Nasal Cannula 4.00 05/12/17 19:03 107 18 125/72 (89) 93 Nasal Cannula 4.00 05/12/17 16:35 92 Nasal Cannula 4.00 05/12/17 16:14 92 Nasal Cannula 4.00 05/12/17 16:04 98.5 112 20 169/95 (119) 85 I/O 05/12/17 05/12/17 05/12/17 05/13/17 05/13/17 05/13/17 07:00 15:00 23:00 07:00 15:00 23:00 Intake Total 250 ml 1842 ml 1456 ml Output Total 700 ml Balance 250 ml 1142 ml 1456 ml Intake Oral 916 ml IV Total 250 ml 1842 ml 540 ml Output Urine Total 700 ml # Voids 2 # Bowel Movements 0 Result Diagram: 05/13/17 0750 05/13/17 0750 Objective Remarks GENERAL: NAD, A&Ox3 HEAD: Normocephalic. NECK: Supple, trachea midline. No lymphadenopathy. EYES: No scleral icterus. No injection or drainage. CARDIOVASCULAR: Regular rate and rhythm without murmurs, gallops, or rubs. RESPIRATORY: Breath sounds equal bilaterally. No accessory muscle use. GASTROINTESTINAL: Abdomen soft, non-tender, nondistended. MUSCULOSKELETAL: No cyanosis, or edema. SKIN: Warm and dry. NEURO: No focal neurological deficitis. A/P Problem List: (1) Influenza A ICD Code: J10.1 - Influenza due to other identified influenza virus with other respiratory manifestations Status: Acute (2) Sepsis due to pneumonia ICD Code: J18.9 - Pneumonia, unspecified organism; A41.9 - Sepsis, unspecified organism Status: Acute Assessment and Plan 77-year-old male admitted secondary to influenza with pneumonia, hypoxia, and severe sepsis Improving today. Continue to wean oxygen as tolerated. At baseline patient does not use oxygen. Severe sepsis has resolved. Labs reviewed. Infectious values improving. Continue to monitor labs. Labs ordered for further monitoring. Bilateral pneumonia Hypoxia Nebulized treatments as needed Oxygen supplementation Follow pulse ox Treat infection Wean oxygen as tolerated Monitor for clinical improvement Rocephin Azithromycin Probiotic Severe sepsis IV hydration Treatment infection as above Follow lactic acid level Influenza A Tamiflu for 5 days Hypertension Continue baseline treatment Follow blood pressures Adjust treatments as needed Hyperlipidemia Continue present treatment Follow as an outpatient DVT prophylaxis Meek Guaman MD May 13, 2017 14:45
[2017-05-13] MEDS: cefTRIAXone INJ 1,000 MG in SODIUM CHLORIDE 0.9% INJ 100 ML IV SCH (16:39)
[2017-05-13] MEDS: AZITHROMYCIN INJ 500 MG in SODIUM CHLOR 0.9% 250 ML INJ 250 ML IV SCH (18:08)
[2017-05-13] MEDS: ENOXAPARIN SODIUM 40 MG/0.4 ML SYRINGE SQ SCH (18:11)
[2017-05-13] MEDS: diphenhydrAMINE HCL 50 MG CAP PO PRN (22:37)
[2017-05-14] VITALS (8 sets, daily range): BP systolic 128–155; BP diastolic 73–89; PULSE 68–84; RESP 16–20; TEMP 96.7–99.8; O2SAT 89–96
--- NOTE | 2017-05-14 00:19 | EKG ---
Date Performed: 05/12/2017 Time Performed: 16:26:15 PTAGE: 77 years EKG: SINUS TACHYCARDIA WITH FIRST DEGREE AV BLOCK POSSIBLE LEFT ATRIAL ENLARGEMENT POSSIBLE RIGH T VENTRICULAR HYPERTROPHY ABNORMAL ECG PREVIOUS TRACING : 11/21/2016 07.54 Compared to prior tracing, now in sinus tachycardia DOCTOR: Manish Morrow Interpretating Date/Time 05/14/2017 00:19:04
[2017-05-14] MEDS: RESP: ALBUTEROL 2.5 MG/IPRATROPIUM 0.5 MG NEB (SCH) INH ×3 (07:28→19:20)
[2017-05-14] MEDS: LACTOBACILLUS ACIDOPHILUS TAB PO SCH ×3 (08:13→17:15)
[2017-05-14] MEDS: predniSONE 20 MG TAB PO SCH ×2 (08:13→20:40)
[2017-05-14] MEDS: OSELTAMIVIR PHOSPHATE 45 MG CAP PO SCH ×2 (08:13→20:40)
[2017-05-14] MEDS: SODIUM CHLORIDE 0.9% FLUSH 10 ML FLUSH IV FLUSH SCH ×2 (08:13→20:41)
[2017-05-14 08:25] LABS: AUTOMATED NEUTROPHIL # 19.5 TH/MM3 (1.8-7.7); BASOPHIL % 0.1 % (0.0-2.0); EOSINOPHIL % 0.1 % (0.0-4.0); HEMATOCRIT 35.2 % (39.0-51.0); LYMPH % 5.2 % (9.0-44.0); LYMPHOCYTE # 1.1 TH/MM3 (1.0-4.8); MEAN CELL VOLUME 89.6 FL (80.0-100.0); MEAN CORPUSCULAR HEMOGLOBIN 29.9 PG (27.0-34.0); MEAN CORPUSCULAR HGB CONC 33.4 % (32.0-36.0); MEAN PLATELET VOLUME 8.4 FL (7.0-11.0); MONO % 3.6 % (0.0-8.0); MONOCYTE # 0.8 TH/MM3 (0-0.9); PLATELET COUNT 290 TH/MM3 (150-450); RED BLOOD COUNT 3.93 MIL/MM3 (4.50-5.90); RED CELL DISTRIBUTION WIDTH 13.2 % (11.6-17.2); WHITE BLOOD COUNT 21.4 TH/MM3 (4.0-11.0)
[2017-05-14 08:38] LABS: CHLORIDE 108 MEQ/L (98-107); SODIUM (NA) 144 MEQ/L (136-145)
[2017-05-14 08:46] LABS: CALCIUM 8.2 MG/DL (8.5-10.1)
[2017-05-14 08:47] LABS: ALBUMIN 2.8 GM/DL (3.4-5.0); BICARBONATE 27.3 MEQ/L (21.0-32.0); BLOOD UREA NITROGEN 11 MG/DL (7-18); GLUCOSE,RANDOM 134 MG/DL (74-106)
[2017-05-14 08:50] LABS: ALT (GPT) 17 U/L (12-78); AST (GOT) 25 U/L (15-37); GLOMERULAR FILTRATION RATE 131 ML/MIN (>89)
[2017-05-14 08:51] LABS: TOTAL BILIRUBIN ADULT 0.2 MG/DL (0.2-1.0); TOTAL PROTEIN 6.7 GM/DL (6.4-8.2)
[2017-05-14 08:52] LABS: ALKALINE PHOSPHATASE 68 U/L (45-117)
[2017-05-14 08:58] LABS: HEMOGLOBIN 11.8 GM/DL (13.0-17.0)
--- NOTE | 2017-05-14 13:25 | HHI.PR ---
Subjective Remarks Respiratory status is improving. However patient is tested with walk test today. We'll component did not occur as he becomes hypoxic with removal of oxygen. Objective Vital Signs Date Time Temp Pulse Resp B/P (MAP) Pulse Ox O2 Delivery O2 Flow Rate FiO2 05/14/17 12:15 89 05/14/17 12:00 96.7 68 20 155/88 (110) 90 05/14/17 08:00 99.8 84 18 145/83 (103) 96 05/14/17 07:20 91 Nasal Cannula 4.00 05/14/17 05:06 05/14/17 00:09 97.9 80 16 129/73 (91) 96 05/13/17 21:05 98.0 79 18 137/76 (96) 95 05/13/17 20:00 75 05/13/17 19:36 92 Nasal Cannula 4.00 05/13/17 16:00 98.6 84 16 134/71 (92) 91 I/O 05/13/17 05/13/17 05/13/17 05/14/17 05/14/17 05/14/17 07:00 15:00 23:00 07:00 15:00 23:00 Intake Total 1842 ml 1456 ml 300 ml Output Total 700 ml Balance 1142 ml 1456 ml 300 ml Intake Oral 916 ml 200 ml IV Total 1842 ml 540 ml 100 ml Output Urine Total 700 ml # Voids 2 4 3 # Bowel Movements 0 0 Result Diagram: 05/14/17 0718 05/14/17 0718 Objective Remarks GENERAL: NAD, A&Ox3 HEAD: Normocephalic. NECK: Supple, trachea midline. No lymphadenopathy. EYES: No scleral icterus. No injection or drainage. CARDIOVASCULAR: Regular rate and rhythm without murmurs, gallops, or rubs. RESPIRATORY: Breath sounds equal bilaterally. No accessory muscle use. GASTROINTESTINAL: Abdomen soft, non-tender, nondistended. MUSCULOSKELETAL: No cyanosis, or edema. SKIN: Warm and dry. NEURO: No focal neurological deficitis. A/P Problem List: (1) Influenza A ICD Code: J10.1 - Influenza due to other identified influenza virus with other respiratory manifestations Status: Acute (2) Sepsis due to pneumonia ICD Code: J18.9 - Pneumonia, unspecified organism; A41.9 - Sepsis, unspecified organism Status: Acute Assessment and Plan 77-year-old male admitted secondary to influenza with pneumonia, hypoxia, and severe sepsis Improving today, not yet off oxygen. Continue to wean oxygen as tolerated. Continue to monitor respiratory status and oxygenation. If improvement doesn't occur in the next day we'll consider discharge on oxygen. Bilateral pneumonia Hypoxia Nebulized treatments as needed Oxygen supplementation Follow pulse ox Treat infection Wean oxygen as tolerated Monitor for clinical improvement Rocephin Azithromycin Probiotic Severe sepsis IV hydration Treatment infection as above Follow lactic acid level Influenza A Tamiflu for 5 days Hypertension Continue baseline treatment Follow blood pressures Adjust treatments as needed Hyperlipidemia Continue present treatment Follow as an outpatient DVT prophylaxis Meek Guaman MD May 14, 2017 13:25
[2017-05-14] MEDS: ENOXAPARIN SODIUM 40 MG/0.4 ML SYRINGE SQ SCH (17:15)
[2017-05-14] MEDS: cefTRIAXone INJ 1,000 MG in SODIUM CHLORIDE 0.9% INJ 100 ML IV SCH (17:15)
[2017-05-14] MEDS: AZITHROMYCIN INJ 500 MG in SODIUM CHLOR 0.9% 250 ML INJ 250 ML IV SCH (18:01)
[2017-05-14] MEDS: diphenhydrAMINE HCL 50 MG CAP PO PRN (20:40)
[2017-05-14] MEDS: guaiFENesin SOLUTION 200 MG/10 ML CUP PO PRN (20:41)
[2017-05-15 00:03] VITALS: BP 120/78; PULSE 70; RESP 18; TEMP 98; O2SAT 93
[2017-05-15] MEDS: RESP: ALBUTEROL 2.5 MG/IPRATROPIUM 0.5 MG NEB (SCH) INH ×2 (07:24→14:14)
[2017-05-15 07:28] VITALS: O2SAT 93
[2017-05-15 08:00] VITALS: BP 161/98; PULSE 74; RESP 18; TEMP 96.3; O2SAT 94
[2017-05-15] MEDS: LACTOBACILLUS ACIDOPHILUS TAB PO SCH ×2 (08:29→12:56)
[2017-05-15] MEDS: predniSONE 20 MG TAB PO SCH (08:29)
[2017-05-15] MEDS: OSELTAMIVIR PHOSPHATE 45 MG CAP PO SCH (08:29)
[2017-05-15] MEDS: SODIUM CHLORIDE 0.9% FLUSH 10 ML FLUSH IV FLUSH SCH (08:29)
[2017-05-15] MEDS ORDERED: FLUT1INH INH (10:08)
[2017-05-15] MEDS ORDERED: AUGM875T3 PO (10:08)
[2017-05-15] MEDS ORDERED: PRED10PA2 PO (10:08)
[2017-05-15] MEDS ORDERED: IPRASOL INH (10:08)
[2017-05-15] MEDS ORDERED: OXYGENDME NAS.CANULA (10:08)
[2017-05-15] MEDS ORDERED: AZIT500T2 PO (10:08)
[2017-05-15] MEDS ORDERED: LACTTAB8 PO (10:08)
[2017-05-15 12:00] VITALS: BP 153/86; PULSE 69; RESP 21; TEMP 98.4; O2SAT 92
--- NOTE | 2017-05-15 14:07 | HHI.DS ---
Discharge Summary Admission Date May 12, 2017 at 18:07 Discharge Date: May 15, 2017 Admitting Diagnosis Sepsis secondary to bilateral pneumonia, influenza positive (1) Influenza A ICD Code: J10.1 - Influenza due to other identified influenza virus with other respiratory manifestations Diagnosis: Principal Status: Acute (2) Sepsis due to pneumonia ICD Code: J18.9 - Pneumonia, unspecified organism; A41.9 - Sepsis, unspecified organism Diagnosis: Principal Status: Acute Procedures None Brief History - From Admission Mr. Arriaza is a 77-year-old male. He says for the past 3 days he felt severely ill and had difficulty breathing. He came into the ER secondary to this. He has found to be influenza positive. Bilateral pneumonia is also seen on imaging. Leukocytosis is present with tachycardia and an elevated lactic acid level qualifying him for severe sepsis. He has also had hypoxia but this is improved with use of oxygen via nasal cannula. He has had walking pneumonia in the past and also has had an influenza before. No influenza vaccination was obtained this year. No other complaints at this time. CBC/BMP: 05/14/17 0718 05/14/17 0718 Significant Findings Laboratory Tests Test 05/12/17 16:30 05/12/17 16:35 05/12/17 21:05 05/13/17 07:50 Lactic Acid Level 2.8 mmol/L (0.4-2.0) 3.7 mmol/L (0.4-2.0) White Blood Count 14.6 TH/MM3 (4.0-11.0) 13.2 TH/MM3 (4.0-11.0) Neutrophils (%) (Auto) 84.9 % (16.0-70.0) 92.8 % (16.0-70.0) Lymphocytes (%) (Auto) 6.7 % (9.0-44.0) 5.0 % (9.0-44.0) Neutrophils # (Auto) 12.4 TH/MM3 (1.8-7.7) 12.2 TH/MM3 (1.8-7.7) Monocytes # (Auto) 1.0 TH/MM3 (0-0.9) Activated Partial Thromboplast Time 30.8 SEC (24.3-30.1) Blood Gas HCO3 27 mmol/L (22-26) Blood Gas Base Excess 3.6 mmol/L (-2-2) Arterial Blood pH 7.53 (7.380-7.420) Arterial Blood Partial Pressure CO2 32 mmHG (38-42) Random Glucose 117 MG/DL (74-106) 233 MG/DL (74-106) Estimat Glomerular Filtration Rate 81 ML/MIN (>89) Troponin I LESS THAN 0.02 NG/ML Red Blood Count 4.07 MIL/MM3 (4.50-5.90) Hemoglobin 12.4 GM/DL (13.0-17.0) Hematocrit 36.7 % (39.0-51.0) Lymphocytes # (Auto) 0.7 TH/MM3 (1.0-4.8) Albumin 2.9 GM/DL (3.4-5.0) Calcium Level 8.4 MG/DL (8.5-10.1) Potassium Level 3.3 MEQ/L (3.5-5.1) Test 05/14/17 07:18 White Blood Count 21.4 TH/MM3 (4.0-11.0) Red Blood Count 3.93 MIL/MM3 (4.50-5.90) Hemoglobin 11.8 GM/DL (13.0-17.0) Hematocrit 35.2 % (39.0-51.0) Neutrophils (%) (Auto) 91.0 % (16.0-70.0) Lymphocytes (%) (Auto) 5.2 % (9.0-44.0) Neutrophils # (Auto) 19.5 TH/MM3 (1.8-7.7) Random Glucose 134 MG/DL (74-106) Albumin 2.8 GM/DL (3.4-5.0) Calcium Level 8.2 MG/DL (8.5-10.1) Chloride Level 108 MEQ/L (98-107) Hospital Course Mr. Arriaza is a 77-year-old male. He was admitted secondary to influenza with pneumonia and had sepsis at time of admit. COPD is present at baseline. Patient is typically fairly well controlled without hospitalizations but she says this is the worse exacerbations had. He is treated for his COPD exacerbation and infection. Through time there has been some improvement in his respiratory status but he is still remaining oxygen dependent. Resolution of hypoxia is slow going and home O2 is recommended. Patient is agreeable with this. Acute for 3 home. Medically stable and cleared for discharge today back to home with home oxygen. Pt Condition on Discharge: Stable Discharge Disposition: Disch w/ Home Health Serv Discharge Time: <= 30 minutes Discharge Instructions DIET: Follow Instructions for: As Tolerated, No Restrictions Activities you can perform: Regular-No Restrictions Follow up Referrals: PCP Follow-up - 2 Weeks New Medications: Amoxicillin-Clavulanate (Augmentin) 875-125 Mg Tab 1 TAB PO BID for Infection, #10 TAB 0 Refills Azithromycin (Azithromycin) 500 Mg Tab 500 MG PO DAILY for Infection, #3 TAB 0 Refills Lactobacillus Acidophilus (Lactobacillus Acidophilus) 1 Billion Cell Tab 1 TAB PO TIDAC for Nutritional Supplement, #30 TAB 0 Refills Oxygen (O2) (Oxygen (O2)) Device LITER SERAFIN.CANULA CONTINUOUS for Prevent Hypoxemia, #2 Oxygen Concentrator Portable Gaseous 2 L/min via Nasal Canula Continuous For 99 months Prednisone (48) 10 mg tab Dose Pack (Prednisone (48) 10 mg tab Dose Pack) 10 Mg Dspk 10 MG PO DIRECTED for Inflammation, #1 DSPK 0 Refills Continued Medications: Amlodipine (Amlodipine) 5 Mg Tab 5 MG PO DAILY for Blood Pressure Management, #30 TAB 0 Refills Atorvastatin (Atorvastatin) 10 Mg Tab 10 MG PO HS for Cholesterol Management, #30 TAB 0 Refills Fluticasone-Vilanterol Inh (Breo Ellipta Inh) 100-25 Mcg/Act Inh 1 PUFF INH DAILY for Breathing Treatment, #1 INHALER 0 Refills (This prescription has been renewed) Use daily at the same time. Ipratropium-Albuterol Neb (Duoneb) 0.5-2.5 Mg/3 Ml Neb 1 NEBULE INH Q4HR NEB for Breathing Treatment, #180 NEBULE 0 Refills (This prescription has been renewed) Meek Dsouza MD May 15, 2017 14:07
--- NOTE | 2017-05-15 16:02 | HHI.FF ---
Face to Face Verification Diagnosis: (1) COPD exacerbation (2) Hypoxia Home Health Nursing Order: Oxygen administration education Nursing assessment with vital signs I have seen patient Naresh Arriaza on 05/15/17. My clinical findings support the need for the requested home health care services because: Ltd mobility - disease progression Patient has SOB Deconditioned w/ increased weakness Limited ability to care for self I certify that my clinical findings support that this patient is homebound because: Hx COPD- exertion dyspnea/weakness Unsafe to leave home unassisted Unable to use public transportation Meek Dsouza MD May 15, 2017 16:02
== END 2017-05-15 15:30 | disposition home health service (06) | DRG 871 ==
LOC: PHED 15:57 → PHEDA 18:07 → PH3A 19:37
PROVIDERS: ADMIT Hospitalist; ATTEND Hospitalist
DX: A41.9 Sepsis, unspecified organism (principal); J18.9 Pneumonia, unspecified organism; J10.00 Influenza due to other identified influenza virus with unspecified type of pneumonia; J44.0 Chronic obstructive pulmonary disease with (acute) lower respiratory infection; J44.1 Chronic obstructive pulmonary disease with (acute) exacerbation; R65.20 Severe sepsis without septic shock; M19.90 Unspecified osteoarthritis, unspecified site; I10 Essential (primary) hypertension; R09.02 Hypoxemia; E78.5 Hyperlipidemia, unspecified; Z87.01 Personal history of pneumonia (recurrent)
CPT/HCPCS: 36600; 71045; 80048; 80053; 82805; 83605; 83735; 83880; 84484; 85025; 85610; 85730; 87040; 87804; 93005; 94618; 94640; 94664; 96374; J0456; J0696; J1650; J2930; J7030; J7050; J7512; J7613; Q0163